=== PATIENT | female | born 1990 | race Caucasian/White ===

== ENCOUNTER 2017-01-02 18:19 | Observation (INO) | payer OTHER ==
[2017-01-02] MEDS ORDERED: KETOROLAC 30 MG/1 ML SDV IVP ONE (20:16)
[2017-01-02] MEDS ORDERED: ONDANSETRON 4 MG/2 ML VIAL IVP ONE (20:16)
[2017-01-02] MEDS ORDERED: NS 1,000 ML IV ONE (20:17)
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
[2017-01-02 20:39] LABS: % IMMATURE GRANULYOCYTES 0.3 % (0.0-1.1); ABSOLUTE IMMATURE GRANULOCYTES 0.03 10^3/uL (0.00-0.10); ADD DIFF? NO; ADD MORPH? NO; ADD SCAN? NO; ATYPICAL LYMPHOCYTE FLAG 10 (0-99); FRAGMENT RBC FLAG 0 (0-99); HEMATOCRIT 37.5 % (38.0-47.0); HEMOGLOBIN 12.2 g/dL (12.6-16.3); LEFT SHIFT FLG 0 (0-99); LIPEMIA HEMOLYSIS FLAG 80 (0-99); MEAN CELL HEMOGLOBIN 26.3 pg (27.9-34.1); MEAN CELL HEMOGLOBIN CONCENTR. 32.5 g/dL (32.4-36.7); MEAN PLATELET VOLUME 10.8 fL (8.7-11.7); PLATELET CLUMPS FLAG 0 (0-99); PLATELET COUNT 179 10^3/uL (150-400); RED BLOOD CELL COUNT 4.63 10^6/uL (4.18-5.33); RED CELL DISTRIBUTION WIDTH 16.7 % (11.5-15.2)
[2017-01-02 20:40] LABS: COLOR YELLOW; LEUKOCYTE ESTERASE,URINE TRACE (NEGATIVE); NITRITE,URINE NEGATIVE (NEGATIVE)
[2017-01-02 20:47] LABS: BACTERIA TRACE /hpf (NONE SEEN)
[2017-01-02] MEDS ORDERED: HYDROmorphONE/DILAUDID 1 MG/ML SYR ONE (20:48)
[2017-01-02] MEDS ORDERED: HYDROmorphONE/DILAUDID 1 MG/ML SYR IVP ONE ×2 (20:48→23:48)
[2017-01-02 20:55] LABS: ANION GAP 11 mEq/L (8-16); CALCIUM 8.7 mg/dL (8.5-10.4); CARBON DIOXIDE 25 mEq/l (22-31); CHLORIDE 103 mEq/L (97-110); CREATININE 0.7 mg/dL (0.6-1.0); GLOMERULAR FILTRATION RATE > 60; GLUCOSE 87 mg/dL (70-100); POTASSIUM 3.6 mEq/L (3.5-5.2); SODIUM 139 mEq/L (134-144)
[2017-01-02] MEDS ORDERED: METOCLOPRAMIDE 10 MG/2 ML VIAL IVP ONE (22:12)
[2017-01-02] MEDS ORDERED: KETAMINE 100 MG/10 ML SYR IVP ONE (22:12)
[2017-01-02] MEDS ORDERED: IOPAMIDOL (ISOVUE-300) 100 ML BTL ONE (22:17)
[2017-01-02] MEDS ORDERED: ERTAPENEM 1 GM in NS 100 ML IV ONE (23:39)
[2017-01-03] MEDS ORDERED: BUPIVACAINE 0.5% 30 ML SDV ONE
[2017-01-03] MEDS ORDERED: fentaNYL 100 MCG/2 ML INJ ONE ×2 (00:14→01:50)
[2017-01-03] MEDS ORDERED: PROPOFOL 200 MG/20 ML VIAL ONE (00:15)
[2017-01-03] MEDS ORDERED: ROCURONIUM 50 MG/5 ML VIAL ONE (00:17)
[2017-01-03] MEDS ORDERED: METOCLOPRAMIDE 10 MG/2 ML VIAL ONE (00:17)
[2017-01-03] MEDS ORDERED: MIDAZOLAM 2 MG/2 ML VIAL ONE (00:29)
--- NOTE | 2017-01-03 00:43 | GHP ---
[f rep st] HISTORY AND PHYSICAL DATE OF ADMISSION: 01/02/2017 CHIEF COMPLAINT: Abdominal pain. HISTORY OF PRESENT ILLNESS: The patient is a 26-year-old woman, who developed abrupt onset of pain at 11 a.m. this morning. She has had a decreased appetite today. The pain is all over but is worse in the left lower quadrant and the right lower quadrant. She is passing flatus and having normal b owel movements. She is not nauseated. She has no fevers or chills. She presented to the emergency room and a CT scan was obtained which showed a mildly inflamed appendix with some stranding around it. PAST MEDICAL HISTORY: Chronic low back pain. She is currently tapering down on her narcotic. She was previously on oxycodone 30 mg p.o. 4 times a day. She has a Chiari malformation. PAST SURGICAL HISTORY: . PAST SOCIAL HISTORY: She is a nonsmoker. She takes care of her father at home. MEDICATIONS: Oxycodone 15 mg p.o. q.6 hours as needed for pain. ALLERGIES: LEVOFLOXACIN which the reaction was arm swelling when it was given intravenously and HYD ROCODONE which causes her stomach to be upset. REVIEW OF SYSTEMS: A 10-point Review of Systems negative except per HPI. FAMILY HISTORY: Her father was involved in an accident, is quadriplegic. PHYSICAL EXAM: VITAL SIGNS: 36.8, 104, 128/77, 16, 98%. GENERAL: Pleasant, well-nourished, well- groomed woman, sitting up on bed. HEENT: Normocephalic. No gross hearing deficits. Mucous membra teresa moist. Pupils equal and round. No scleral icterus. LUNGS: Clear to auscultation bilaterally. No increased work of breathing. CARDIAC: Regular rate. No peripheral edema. ABDOMEN: Bowel so unds are quiet. She is soft. She is tender most notably in the right lower quadrant as well as in the left pericolic gutter which she is diffusely tender. MUSCULOSKELETAL: Moves all extremities we ll. SKIN: Warm and dry. LABORATORY WORK: Her white count is 9,000, 80% neutrophils. Her chemistry panel is within normal l imits. test is negative. IMPRESSION AND PLAN: The patient is a 26-year-old with likely early appendicitis. Gave her the opt ion of watchful waiting versus going to the OR. We will proceed to the operating room for laparosco pic appendectomy. The risks and benefits, including but not limited to stroke, heart attack, , blood clots, infection, bleeding, damage to surrounding structures, were all discussed. She had he r questions answered to her satisfaction and signed the informed consent. /[id number]/MODL
[2017-01-03] MEDS ORDERED: SUGAMMADEX SODIUM 200 MG/2 ML VIAL IVP ONE (01:16)
--- NOTE | 2017-01-03 01:24 | POSTOPPROG ---
Post Op Note Date of Operation: 01/03/17 Surgeon: Liv Montgomery Anesthesiologist: donte Anesthesia: GET(General Endotracheal) Pre-op Diagnosis: acute appendicitis Post-op Diagnosis: same Indication: 26 year old with abdominal pain Procedure: lap appy Findings: inflamed appendix Inf/Abcess present in the surg proc area at time of surgery?: No Depth: Superfical (Skin SQ) EBL: Minimal Specimen(s): appendix
[2017-01-03] MEDS ORDERED: ACETAMINOPHEN 325 MG TAB PO PRN (01:26)
[2017-01-03] MEDS ORDERED: ONDANSETRON 4 MG/2 ML VIAL IVP PRN (01:27)
[2017-01-03] MEDS ORDERED: KETOROLAC 30 MG/1 ML SDV ONE (01:28)
[2017-01-03] MEDS ORDERED: PROMETHAZINE HCL 25 MG/ML INJ ONE (01:54)
[2017-01-03] MEDS: HYDROmorphONE/DILAUDID 1 MG/ML SYR IVP PRN ×3 (02:46→06:43)
[2017-01-03] MEDS: KETOROLAC 15 MG/1 ML SDV IVP SCH ×2 (05:51→12:27)
[2017-01-03] MEDS: oxyCODONE IR 15 MG TAB PO PRN ×2 (08:49→12:26)
--- NOTE | 2017-01-03 10:10 | SOAPPROG ---
SOAP Progress Note Assessment/Plan: Assessment: 26yo F POD#1 s/p lap tanisha Transition to PO pain meds Regular diet May shower tomorrow Needs to establish with a new pain specialist for ongoing pain management Dispo: likely home later today. No heavy lifting x 2 weeks. F/u [address] Montgomery S: pain controlled but still using IV pain meds. Tolerating regular diet. no nausea. O: laying in bed, comfortable, NAD NO increased WOB +BS, abd soft, nt, nd. Incisions CDI Objective: Vital Signs Temp Pulse Resp BP Pulse Ox 36.6 C 66 14 118/61 95 01/03/17 08:13 01/03/17 08:13 01/03/17 08:13 01/03/17 08:13 01/03/17 08:13 01/02/17 01/03/17 01/04/17 05:59 05:59 05:59 Intake Total 3380 Output Total 5 Balance 3375 ICD10 Worksheet Patient Problems: Problems Problem Status Onset Abdominal pain Acute Acute appendicitis Acute Headache Acute Acute
--- NOTE | 2017-01-03 11:16 | GOP ---
[f rep st] OPERATIVE REPORT DATE OF OPERATION: 01/02/2017 SURGEON: Liv Montgomery MD ANESTHESIOLOGIST: Dr. Shane Leiva, general. PREOPERATIVE DIAGNOSIS: Abdominal pain, early appendicitis. POSTOPERATIVE DIAGNOSIS: Acute appendicitis. PROCEDURE PERFORMED: Laparoscopic appendectomy. FINDINGS: Inflamed appendix. SPECIMENS: Gallbladder. ESTIMATED BLOOD LOSS: 5 cc INDICATIONS: Nina Montana is a 26-year-old, who presented with generalized abdominal pain. White c ount was normal. Her CT scan showed possible early appendicitis. DESCRIPTION OF PROCEDURE: Nina was brought into the operating room, placed supine on the table, an d general anesthesia was administered. Her abdomen was prepped and draped in the usual sterile fash ion. I infiltrated all sites with 0.5% Marcaine prior to making the incisions. I elevated her umbi licus. I made a small incision and inserted the Veress needle. It passed the hanging drop test. H er abdomen insufflated easily to a pressure of 15 mmHg. I placed a 5 mm camera with the trocar at t his site. There were no injuries from Veress needle placement. Under direct vision, I placed a 5 m m suprapubic trocar and a 10 mm trocar in the left lower quadrant. She was placed in the Trendelenb urg position with the left side down. Her appendix was inflamed. I was able to grasp it and divide the mesoappendix, which was thickened, with the Harmonic Scalpel. I transected the base of the marga endix with an Endo-IVETTE 45 white load. I placed the appendix in an EndoCatch bag and retrieved it vi a the 10 mm trocar. Hemostasis was achieved at the staple line. I examined her abdomen and no othe r abnormalities were noted. The ports were removed under direct vision. The abdomen allowed to daya ufflate. The fascia at the 10 mm trocar site was closed with 0 Vicryl. Skin closed with 4-0 Monocr yl. Dermabond applied. She was awakened in the operating room, extubated, transferred to PACU in s table condition. /[id number]/MODL
[2017-01-03 12:05] VITALS: BP 114/64; PULSE 65; RESP 16; TEMP 98.5; O2SAT 97
== END 2017-01-03 15:39 | disposition home or self-care (01) ==
LOC: F1N 01-03 02:02
PROVIDERS: ADMIT Surgery; ATTEND Surgery
PROC: 0DTJ4ZZ Resection of Appendix, Percutaneous Endoscopic Approach (ICD-10-PCS; principal; 2017-01-02)
DX: K35.80 Unspecified acute appendicitis (principal); M54.9 Dorsalgia, unspecified; Z97.5 Presence of (intrauterine) contraceptive device
CPT/HCPCS: 96374; G0378; J1170; J1200; J1335; J1885; J2250; J2405; J2550; J2704; J2765; J3010; Q9967

== ENCOUNTER 2017-11-27 17:14 | Emergency (ER) | payer OTHER ==
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
[2017-11-27] MEDS ORDERED: DEXAMETHASONE 4 MG/ML VIAL IVP ONE (18:01)
[2017-11-27] MEDS ORDERED: DIAZEPAM 5 MG/ML 1 ML SYR IVP ONE (18:01)
[2017-11-27] MEDS ORDERED: GABAPENTIN 300 MG CAP PO ONE (18:01)
[2017-11-27] MEDS ORDERED: LIDOCAINE 1% 80 MG in NS 100 ML IV ONE (19:05)
[2017-11-27] MEDS ORDERED: HALOPERIDOL LACT 5 MG/ML INJ IVP ONE (19:05)
[2017-11-27 20:03] VITALS: BP 117/65
[2017-11-27] MEDS ORDERED: OXYCODONE/APAP 5/325MG PREPACK#4 BTL TAKEHOME ONE (20:08)
== END 2017-11-27 20:20 | disposition home or self-care (01) ==
DX: S32.10XA Unspecified fracture of sacrum, initial encounter for closed fracture (principal); K59.00 Constipation, unspecified; F11.90 Opioid use, unspecified, uncomplicated; M62.838 Other muscle spasm; Z87.891 Personal history of nicotine dependence; W01.0XXA Fall on same level from slipping, tripping and stumbling without subsequent striking against object, initial encounter; Y99.8 Other external cause status; Y93.89 Activity, other specified
CPT/HCPCS: 96374; J1100; J1630; J3360

== ENCOUNTER 2018-04-28 12:47 | Emergency (ER) | payer OTHER ==
[2018-04-28 12:54] VITALS: BP 117/91
--- NOTE | 2018-04-28 13:06 | EDPHY ---
General Time Seen by Provider: 04/28/18 12:58 Narrative: CHIEF COMPLAINT: Panic attack HISTORY OF PRESENT ILLNESS: Patient presents with complaints of panic attack. She states over the past few days she has had increasing episodes of which she describes as a panic attack. She feels palpitations, tingling, nausea, sweaty and her heart races. She states that these are the same symptoms she has had her previous panic attacks. The these are not new to her, but they have been more frequent over the past few days. They last anywhere from 1-5 hours. She says she cannot sleep because the. She said she typically responds well to Klonopin but has run out of this over the past few days. She is not taking any in 3 days. She says that she is starting to feel shaky from this as well. Note pain. No describe seizure activity. No thoughts of self-harm or harm towards others. REVIEW OF SYSTEMS: 10 systems were reviewed and negative with the exception of the elements mentioned in the history of present illness. PCP: Dr. Dueñas SPECIALISTS: Dr. Ross, pain management PAST MEDICAL HISTORY: Chronic back pain, PTSD, anxiety, QR malformation, fibromyalgia, pseudotumor cerebral, PAST SURGICAL HISTORY: Tonsillectomy, lumbar disc removal SOCIAL HISTORY: Nonsmoker. Lives independently. FAMILY HISTORY: Noncontributory EXAMINATION: General Appearance: Alert, no distress Head: normocephalic, atraumatic Eyes: Pupils equal and round, no conjunctival pallor or injection ENT, Mouth: Mucous membranes moist Neck: Normal inspection, supple, non-tender Respiratory: Lungs are clear to auscultation Cardiovascular: Regular rate and rhythm. No murmur Gastrointestinal: Abdomen is soft and nontender Back: non-tender, no bony abnormalities Neurological: GCS 15 A&O, nonfocal, strength is symmetric in upper lower extremities. Light sensory symmetric upper lower extremities. No tremor. Normal steady gait Skin: Warm and dry, no rash Extremities: Nontender, no pedal edema Psychiatric: Anxious Mood and affect. No SI. No HI. DIFFERENTIAL DIAGNOSES: Including but not limited to anxiety reaction, PTSD, chronic pain, malingering MDM: 1:05 p.m. Acute anxiety reaction in patient with known anxiety PTSD. Patient has been off of her Klonopin for 3 days, and I have verified her prescriptions. I do feel that she warrants short course of further benzodiazepine to avoid withdrawal or seizure activity. She has an appoint with physician on Sunday for further prescription. We discussed that she will not be able to obtain further prescriptions for this in the interim. She will need to contact her prescribing physician for further medications for we discussed ED precautions for repeat anxiety attacks or seizure activity. she is well-appearing and discharged home stable condition. SUPERVISION: This patient was independently evaluated without direct involvement of or examination by the attending physician. CONSULTATION: None - History Smoking Status: Former smoker - Objective Vital Signs: Initial Vital Signs Temperature (C) 98.1 F 04/28/18 12:52 Heart Rate 93 04/28/18 12:52 Respiratory Rate 17 04/28/18 12:52 Blood Pressure 117/91 H 04/28/18 12:52 O2 Sat (%) 94 04/28/18 12:52 O2 Delivery Mode Room Air Allergies/Adverse Reactions: hydrocodone bitartrate [From Vicodin] Allergy (Verified 04/28/18 12:50) levofloxacin [From Levaquin] Allergy (Verified 04/28/18 12:50) Hives Home Medications: Medication Instructions Recorded oxyCODONE MYRISTATE [Xtampza ER] 36 mg PO BID #0 04/21/16 clonazePAM [Klonopin (*)] 0.5 mg PO DAILY PRN 01/03/17 oxyCODONE IR [Oxycodone Ir (*)] 15 mg PO Q4HRS PRN #30 tab 01/03/17 Carisoprodol [Soma (*)] 350 mg PO Q8 PRN #6 tab 11/27/17 clonazePAM [Klonopin (*)] 0.5 mg PO TID #9 tab 04/28/18 morphINE 04/28/18 Departure - Departure Disposition: Home, Routine, Self-Care Clinical Impression: Anxiety reaction, Benzodiazepine dependence Condition: Good Instructions: Anxiety (ED) Additional Instructions: 1. Medication as prescribed as needed. You will need to contact her prescribing physician for further medication. Do not use this in conjunction with alcohol or marijuana 2. Contact primary care physician tomorrow morning for outpatient care in the next 2 days 3. ED precautions as discussed Referrals: MALCOLM DUEÑAS [Non Staff Provider ()] - As per Instructions Prescriptions: clonazePAM [Klonopin (*)] 0.5 mg PO TID #9 tab
== END 2018-04-28 13:27 | disposition home or self-care (01) ==
DX: F41.1 Generalized anxiety disorder (principal); F43.10 Post-traumatic stress disorder, unspecified; F13.20 Sedative, hypnotic or anxiolytic dependence, uncomplicated; M54.9 Dorsalgia, unspecified; Z87.891 Personal history of nicotine dependence

== ENCOUNTER 2018-07-26 19:07 | Emergency (ER) | payer OTHER ==
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
[2018-07-26] MEDS ORDERED: ACETAMINOPHEN 500 MG TAB PO ONE (19:59)
[2018-07-26 21:55] VITALS: BP 137/78
== END 2018-07-26 21:55 | disposition home or self-care (01) ==
DX: M54.2 Cervicalgia (principal); R51 Headache; R59.0 Localized enlarged lymph nodes; V47.0XXA Car driver injured in collision with fixed or stationary object in nontraffic accident, initial encounter; Y92.410 Unspecified street and highway as the place of occurrence of the external cause; M79.7 Fibromyalgia; G89.29 Other chronic pain; Z87.891 Personal history of nicotine dependence